=== PATIENT | female | born 1980 | race Caucasian/White ===

== ENCOUNTER → 2024-04-22 | Outpatient (CLI) | payer OTHER, SELFPAY ==
[2024-04-22 08:37] LABS: Basophils % (Auto) 1 % (0-2.5); Eosinophils # (Auto) 0.1 Thou/mm3 (0.0-0.5); Eosinophils % (Auto) 1 % (0-10); Hematocrit 41.7 % (36.0-46.0); Hemoglobin 14.2 g/dL (12.0-16.0); Immature Granulocytes % (Auto) 1 % (0-0); Immature Granulocytes Auto 0.05 Thou/mm3 (0.00-0.00); Lymphocytes # (Auto) 1.3 Thou/mm3 (1.0-4.8); Lymphocytes % (Auto) 20 % (10-50); Mean Corpuscular HGB Conc 34.1 g/dl (31.0-37.0); Mean Corpuscular Hemoglobin 30.9 pg (25.0-35.0); Mean Corpuscular Volume 91 fL (80-100); Monocytes # (Auto) 0.5 Thou/mm3 (0.0-0.8); Monocytes % (Auto) 8 % (0-12); Neutrophils # (Auto) 4.6 Thou/mm3 (1.8-7.7); Neutrophils % (Auto) 70 % (37-80); Nucleated Red Blood Cell % 0 /100 WBC (0); Platelet Count 276 Thou/mm3 (140-440); RDW Standard Deviation 41.1 fL (36.4-46.3); White Blood Count 6.6 Thou/mm3 (3.6-11.0)
[2024-04-22 08:40] LABS: Glucose Estimated Average 100 mg/dL (80-131); Hemoglobin A1C 5.1 % Hgb (4.8-6.0)
[2024-04-22 08:53] LABS: Vitamin B12 475 pg/mL (211-911); Vitamin D 25 Hydroxy Total 27.2 ng/mL (7.3-40.2)
[2024-04-22 08:58] LABS: Alanine Aminotransferase 17 U/L (10-49); Albumin, Serum 4.7 gm/dL (3.5-5.0); Alkaline Phosphatase 94 U/L (46-116); Anion Gap 8 (7-16); Aspartate Amino Transferase 18 U/L (0-34); BUN/Creatinine Ratio 18 Ratio (12-20); Bilirubin,Total 0.5 mg/dL (0.3-1.2); Blood Urea Nitrogen 18 mg/dL (9-23); Calcium 9.9 mg/dL (8.3-10.6); Calcium (Corrected) 9.9 mg/dL (8.5-10.1); Carbon Dioxide 26.7 mMol/L (20.0-31.0); Cardiac Risk Estimate 3.9 RATIO (3.7-5.6); Chloride 103 mMol/L (98-107); Cholesterol 201 mg/dL (132-200); Globulin 2.4 gm/dL (2.3-3.5); Glucose 102 mg/dL (74-106); HDL Cholesterol 52 mg/dL (40-60); LDL Cholesterol,Calculated 130 mg/dL (0-130); Osmolality,Calculated 277 (275-295); Potassium 4.2 mMol/L (3.4-5.1); Sodium 138 mMol/L (136-145); Thyroid Stimulating Hormone 1.36 uIU/mL (0.55-4.78); Total Protein 7.1 gm/dL (5.7-8.2); Triglycerides 96 mg/dL (30-150); eGFR > 60 See Note
[2024-04-22 09:05] LABS: Collection Type, Urine Clean Catch
[2024-04-22 09:55] LABS: Bacteria,Urine Rare; Bilirubin,Urine Negative (Negative); Blood,Urine 2+ (Negative); Clarity,Urine Clear (Clear/Hazy); Color,Urine Lt-Yellow (Lt Yel-Yel); Culture Indicated,Urine Not Indicated; Glucose, Urine Negative (Negative); Ketones,Urine Negative (Negative); Leukocyte Esterase,Urine Positive (Negative); Nitrite,Urine Negative (Negative); Protein,Urine Negative (Neg - Trace); RBC,Urine 13 /hpf (0-3); Squamous Epithelial Cell,Urine 6 /hpf (0-5); Urobilinogen,Urine Negative mg/dL (0.0-1.0); WBC,Urine 2 /hpf (0-5)
== END | disposition home or self-care (01) ==
LOC: COPL 07:40
PROVIDERS: PCP Family Medicine; Referring Provider Registered Nurse; Visit Provider Registered Nurse
DX: Z00.00 Encounter for general adult medical examination without abnormal findings (principal)
CPT/HCPCS: 36415; 80053; 80061; 81001; 82306; 82607; 83036; 84443; 85025

== ENCOUNTER → 2024-05-12 | Outpatient (CLI) | payer OTHER, SELFPAY ==
--- NOTE | 2024-05-12 11:42 | XR_ITS ---
Examination: MRI left elbow, without contrast Date and time of exam: May 12, 2024 1258 hrs. Indications: Palpable mass medial left elbow one year Technique: Multiple axial sagittal and coronal images of the left elbow have been obtained with the Siemens high-resolution 1.5 Mary MRI scanner. Images obtained include T2-weighted fat-suppressed sagittal sections, TR 3500, TE 46, T2 weighted coronal fat suppressed images, TR 3050, TE 84, T2-weighted transverse fat suppressed images, TR 3260, TE 63, proton density transverse images, TR 4720 TE 46, and T1 weighted coronal images, TR 560, TE 13. Findings: Precontrast images demonstrate no focal mass at the marker site medial anterior elbow No occult fracture No avascular necrosis No elbow effusion Triceps tendon intact No ossified joint bodies Postcontrast images demonstrate no abnormal enhancement in the soft tissue at the area concern Impression: No soft tissue elbow mass depicted Recommend ultrasound soft tissue elbow to exclude soft tissue lipoma
[2024-05-12 12:05] LABS: HCG Qualitative,Urine Negative
== END | disposition home or self-care (01) ==
LOC: SMRI 11:08
PROVIDERS: PCP Registered Nurse; Referring Provider Registered Nurse; Visit Provider Registered Nurse
DX: R22.32 Localized swelling, mass and lump, left upper limb (principal); Z32.00 Encounter for pregnancy test, result unknown
CPT/HCPCS: 73223; 81025; A9579

== ENCOUNTER → 2025-03-10 | Outpatient (CLI) | payer OTHER, SELFPAY ==
[2025-03-10 11:44] LABS: Basophils # (Auto) 0.0 Thou/mm3 (0.0-0.2); Basophils % (Auto) 1 % (0-2.5); Eosinophils # (Auto) 0.2 Thou/mm3 (0.0-0.5); Eosinophils % (Auto) 3 % (0-10); Hematocrit 40.5 % (36.0-46.0); Hemoglobin 14.1 g/dL (12.0-16.0); Immature Granulocytes Auto 0.02 Thou/mm3 (0.00-0.00); Lymphocytes # (Auto) 1.3 Thou/mm3 (1.0-4.8); Lymphocytes % (Auto) 24 % (10-50); Mean Corpuscular HGB Conc 34.8 g/dl (31.0-37.0); Mean Corpuscular Hemoglobin 31.2 pg (25.0-35.0); Mean Corpuscular Volume 90 fL (80-100); Monocytes # (Auto) 0.4 Thou/mm3 (0.0-0.8); Monocytes % (Auto) 8 % (0-12); Neutrophils # (Auto) 3.7 Thou/mm3 (1.8-7.7); Neutrophils % (Auto) 65 % (37-80); Nucleated Red Blood Cell # 0.00 Thou/mm3 (0.00-0.00); Nucleated Red Blood Cell % 0 /100 WBC (0); Platelet Count 300 Thou/mm3 (140-440); RDW Standard Deviation 40.2 fL (36.4-46.3); Red Blood Count 4.52 Miln/mm3 (4.00-5.20); White Blood Count 5.6 Thou/mm3 (3.6-11.0)
[2025-03-10 11:58] LABS: Vitamin B12 573 pg/mL (211-911); Vitamin D 25 Hydroxy Total 32.3 ng/mL (7.3-40.2)
[2025-03-10 12:03] LABS: Iron 103 mcg/dL (50-170); Percent Iron Saturation 33 % (20-55); Total Iron Binding Capacity 305 mcg/dL (250-425); Unsaturated Iron Binding 202 (225-295)
[2025-03-10 12:04] LABS: Anion Gap 11 (7-16); BUN/Creatinine Ratio 13 Ratio (12-20); Blood Urea Nitrogen 13 mg/dL (9-23); Carbon Dioxide 24.0 mMol/L (20.0-31.0); Chloride 104 mMol/L (98-107); Creatinine (Component) 1.0 mg/dL (0.6-1.3); Glucose 97 mg/dL (74-106); Potassium 3.8 mMol/L (3.4-5.1); Sodium 139 mMol/L (136-145); eGFR > 60 See Note
[2025-03-10 12:05] LABS: Alanine Aminotransferase 12 U/L (10-49); Albumin, Serum 4.7 gm/dL (3.5-5.0); Albumin/Globulin Ratio 2.0 (1.2-2.2); Alkaline Phosphatase 85 U/L (46-116); Aspartate Amino Transferase 20 U/L (0-34); Bilirubin,Total 0.6 mg/dL (0.3-1.2); Calcium 9.0 mg/dL (8.3-10.6); Calcium (Corrected) 9.0 mg/dL (8.5-10.1); Free T4 (Free Thyroxine) 1.27 ng/dL (0.89-1.76); Globulin 2.4 gm/dL (2.3-3.5); Magnesium 2.1 mg/dL (1.6-2.6); Osmolality,Calculated 277 (275-295); Thyroid Stimulating Hormone 1.17 uIU/mL (0.55-4.78); Total Protein 7.1 gm/dL (5.7-8.2)
[2025-03-10 15:41] LABS: RA Screen Negative (Negative)
[2025-03-17 11:19] LABS: Cardiolipin Ab (IgA) <2.0 APL-U/mL; Cardiolipin Ab (IgG) <2.0 GPL-U/mL; Sjogren's antibody (SS-A) <1.0 NEG AI (<1.0 NEGATIVE); Sm Antibody <1.0 NEG AI (<1.0 NEGATIVE)
[2025-03-18 06:29] LABS: ANA Pattern NUCLEAR, SPECKLED; ANA Screen, IFA POSITIVE (NEGATIVE); ANA Titer 1:80 titer; Actin Antibody (IgG)* <20 U; B2-Glycoprotein I Ab IgA 2.7 U/mL; B2-Glycoprotein I Ab IgG <2.0 U/mL; B2-Glycoprotein I Ab IgM <2.0 U/mL; CCP Antibody (IgG)* <16 Units; Cardiolipin Ab (IgM) <2.0 MPL-U/mL; Complement Component C3* 162 mg/dL (83-193); Complement Component C4c* 20 mg/dL (15-57); DNA (ds) Antibody* <1 IU/mL; Gastric Parietal Cell Ab* <20.0 U; Mitochondrial Ab NEGATIVE (NEGATIVE); Myocardial Ab, IF NEGATIVE (NEGATIVE); Scl-70 Antibody* <1.0 NEG AI (<1.0 NEGATIVE); Sjogren's Antibody (SS-B) <1.0 NEG AI (<1.0 NEGATIVE); Sm/RNP Antibody <1.0 NEG AI (<1.0 NEGATIVE); Striated Muscle Ab NEGATIVE (NEGATIVE); Thyroglobulin Antibodies* <1 IU/mL (< OR = 1); Thyroid Peroxidase Antibodies* 1 IU/mL (<9)
== END | disposition home or self-care (01) ==
LOC: COPL 10:37
PROVIDERS: PCP Family Medicine; Referring Provider Registered Nurse; Visit Provider Registered Nurse
DX: R76.0 Raised antibody titer (principal)
CPT/HCPCS: 36415; 80053; 82306; 82607; 83516; 83540; 83550; 83735; 84439; 84443; 85025; 86015; 86038; 86146; 86147; 86160; 86200; 86225; 86235; 86255; 86376; 86430; 86800

== ENCOUNTER 2025-04-20 09:01 | Outpatient (AMB) | payer OTHER, SELFPAY ==
--- NOTE | 2025-04-20 09:14 | AMB.GYNCLNOT ---
Vital Signs 04/20/25 09:17 Height 1.68 m Height Method Stated BP 136/91 H Blood Pressure Source Automatic Cuff Blood Pressure Location Right Upper Arm Position Sitting Respiration 18 Pulse 87 Pulse Source Monitor Temp 97.1 F Temp Source Temporal Artery Scan Pulse Oximetry (%) 97 Oxygen Delivery Method Room Air Allergies/Home Meds Allergies & Medications Allergies aspirin Allergy (Severe, Verified 04/20/25 09:19) Anaphylaxis promethazine Allergy (Mild, Verified 04/20/25 09:19) TARDITIVE DYSKINESIA metoclopramide Allergy (Unknown, Verified 04/20/25 09:19) CLONIC/TONIC MUSCLE JERKING SHELLFISH Allergy (Intermediate, Uncoded 04/20/25 09:19) Swelling Medication Reconciliation fluticasone furoate 200 mcg-vilanterol 25 mcg/dose inhalation powder (Breo Ellipta) 1 ea inhalation QDAY 09/01/21 [History Confirmed 04/20/25] fremanezumab-vfrm 225 mg/1.5 mL subcutaneous auto-injector (Ajovy) 225 mg subcut QWEEK 09/01/21 [History Confirmed 04/20/25] mirtazapine 15 mg tablet (Remeron) 15 mg PO QDAY 09/01/21 [History Confirmed 04/20/25] rimegepant 75 mg disintegrating tablet (Nurtec ODT) 75 mg PO PRN PRN MIGRAINES 09/01/21 [History Confirmed 04/20/25] topiramate 50 mg tablet 50 mg PO BID 09/01/21 [History Confirmed 04/20/25] pantoprazole 40 mg tablet,delayed release (Protonix) 40 mg PO QDAY #30 tabs 09/04/21 [Rx Confirmed 04/20/25] methocarbamol 500 mg tablet 500 mg PO Q8H #20 tabs 03/12/22 [Rx Confirmed 04/20/25] estradiol 0.05 mg-norethindrone 0.14 mg/24 hr semiwkly transderm patch (CombiPatch) 1 patch transdermal .weekly 8 weeks #8 ea 04/20/25 [Rx] Intake Visit Data Collection New Patient or Established: New Patient (never been to [facility]) Reason for Visit:: REFERRAL PAP Seen by Clinical Staff ONLY (RN/MA): No Application Security Architect Required: No Do You Feel Safe at Home: Yes Authorities Contacted: N/A PCP or OBGYN visit in last 3 months: No Hx Now: No Are you currently on any form of Control: No Last menstrual period: 04/01/25 Pain Present Currently: No Pain Scale Used: Farmer-[place]/Numerical Smoking Status Smoking Status: Never smoker Immunizations Flu Vaccine in the Last 12 Months: No Flu Vaccine Exclusion Criteria: No Exclusion Criteria Telephone Sterilizer history Telephone Sterilizer History Menstrual regularity: regular Flow: light Monthly: Yes How many days does period last: 4 Age at menarche: 13 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 1. Little interest or pleasure in doing things: not at all 2. Feeling down, depressed, or hopeless: not at all Total score: 0 PHQ-9 3. Trouble falling or staying asleep, or sleeping too much: Not at all 4. Feeling tired or having little energy: Not at all 5. Poor appetite or overeating: Not at all 6. Feeling bad about yourself - or that you are a failure or have let yourself or your family down: Not at all 7. Trouble concentrating on things, such as reading the newspaper or watching television: Not at all 8. Moving or speaking so slowly that other people could have noticed? - Or the opposite - being so fidgety or restless that you have been moving around a lot more than usual: not at all 9. Thoughts that you would be better off or of hurting yourself in some way: Not at all Total score: 0 If you checked off any problems, how difficult have these problems made it for you to do your work, take care of things at home, or get along with other people?: not difficult at all Source: Developed by Drs. Arvind Singh, Nancy Morales, Mahin Head and colleagues, with an educational remigio from [employer]. Depression screen completed yes Social History Living Situation History Marital Status: Unknown Lives With: Family Housing: House Tobacco History Smoking Status: Never smoker Second Hand Smoke Exposure: No Alcohol History Alcohol Intake: Never Domestic Abuse History Do You Feel Safe at Home: Yes History of Present Illness HPI Narrative History of abnormal pap smears, perimenopausal symptoms, periods every 21 to 24 days that are short and light but frequent Cat Rosa is a 44-year-old 2 woman with a history of abnormal pap smears who was referred from her primary care provider at [facility] for gynecologic evaluation and management of perimenopausal symptoms. The patient has a significant gynecologic history including multiple abnormal pap smears with her last LEEP procedure performed approximately 15 years ago. These multiple procedures have resulted in significant cervical damage. She previously had difficulty obtaining pap smears due to a rectocele, which was surgically repaired in October by Dr. Candelario Reed. She reports that she did not have incontinence associated with the rectocele. Cat is currently experiencing perimenopausal symptoms. Her menstrual periods remain consistent, occurring every 21 to 24 days, but are described as short and light though frequent. She was previously prescribed estradiol by her neurologist for her perimenopausal symptoms, however her insurance has not approved this medication. Medical History: - History of abnormal pap smears - Rectocele - Perimenopausal symptoms Surgical History: - Rectocele repair in October [address] Candelario Reed - LEEP procedure approximately 15 years ago Obstetric History: - G2: 2 with history of 2 vaginal deliveries Medications: - Estradiol (prescribed by neurologist, insurance has not approved) Exam General General Appearance: alert, in no apparent distress and healthy appearing Head Head exam: atraumatic Neck Neck exam: Present normal inspection and trachea midline Chest Chest inspection: Present normal inspection and symmetric chest wall rise External exam: Present normal external exam; Absent tenderness Neuro Neurological exam: Present oriented X3 Psych Psychiatric exam: Present normal affect and normal mood Office Procedures [facility] Clinic LOC & Office Proc's Nursing/Assessment Patient Status: Initial/New Patient OB Clinic Nursing Assessment: Medication Reconciliation, Update PMH in EMR and Vital Signs OB Clinic Coordination of Care: Complex Care and Chronic Disease 1-5, Education Complex Pt/Fam, Consent,records obtained, informed consent, Lab and Imaging orders, Results/Orders obtained and Staff clarify orders Miscellaneous Interventions: Pelvic/Pap Smear Set up New Patient Charge New Patient Point Assignment: 1129 New Patient Point Charge: NASCAR DRIVER Level 4 ([id number]) In Clinic Bedside tests/procedures Pap Smear: Yes Assessment & Plan Diagnosis / Problem List (1) Menstrual migraine: Status: Acute (2) Hot flushes, perimenopausal: Status: Acute (3) Encounter for screening for malignant neoplasm of cervix: Status: Acute Plan Perimenopausal symptoms Assessment: Patient is experiencing perimenopausal symptoms with periods occurring every 21-24 days that are short and light but frequent. Previous prescription for estradiol by neurologist was not approved by insurance. Estradiol alone is contraindicated in patients with intact uterus due to increased risk of uterine cancer and must be combined with progesterone. Plan: - Prescribe combipatch (estradiol/progesterone combination) to be sent to [facility] on [address] - Office will handle prior authorization if needed - Order hormone panel to check FSH levels (last hormone test was in 2022) - Order ultrasound to evaluate endometrial stripe History of abnormal pap smears Assessment: Patient has history of abnormal pap smears with previous LEEP procedure approximately [address] Vargas's office. Multiple previous procedures have resulted in significantly damaged cervix. Previous difficulty obtaining pap smears was due to rectocele, which was surgically repaired in October by Dr. Candelario Reed. Plan: - Pap smear completed during visit - Results will be communicated to patient NEUROLOGY TECH: Papsmear Pap Smear Procedure Post-op diagnosis procedure note: Same [place] in room during procedure?: Yes Procedure position: lithotomy Speculum inserted, cervix visualized: Yes Cervical appearance: normal Collection method: broom type device Specimen placed in liquid-based cytology medium: Yes Complications: No Patient tolerated procedure well: Yes Follow up pending results: phone call Papsmear completed: yes
[2025-04-20 09:17] VITALS: BP 136/91; PULSE 87; RESP 18; TEMP 36.2; O2SAT 97
== END 2025-04-20 10:14 | disposition home or self-care (01) ==
LOC: HODSOBC 09:01
PROVIDERS: Supervising Provider Obstetrics & Gynecology; Visit Provider Obstetrics & Gynecology
DX: Z12.4 Encounter for screening for malignant neoplasm of cervix (principal); G43.829 Menstrual migraine, not intractable, without status migrainosus; N95.1 Menopausal and female climacteric states; R23.2 Flushing; Z87.42 Personal history of other diseases of the female genital tract
CPT/HCPCS: 99204; Q0091; G0463

== ENCOUNTER → 2025-04-23 | Outpatient (CLI) | payer OTHER, SELFPAY ==
[2025-04-23 16:47] LABS: Follicle Stimulating Hormone 4.28 mIU/mL (See Note)
[2025-05-06 06:26] LABS: Estradiol, Free 1.00 pg/mL; Estradiol, Total 49 pg/mL
== END | disposition home or self-care (01) ==
PROVIDERS: PCP Registered Nurse; Referring Provider Obstetrics & Gynecology; Visit Provider Obstetrics & Gynecology
DX: N95.1 Menopausal and female climacteric states (principal)
CPT/HCPCS: 36415; 82670; 82681; 83001